=== PATIENT | male | born 1960 | race Caucasian/White ===

== ENCOUNTER 2024-05-14 05:10 | Observation (INO) ==
--- NOTE | 2024-04-07 11:43 | PAT Medication Instructions ---
Medication Instructions Date of Service April 07, 2024 Home Medications glucosamine sulf dipot chlr,msm,chond 550 mg-C 30 mg-jovani 1 mg capsule (Glucosamine Chondroitin) 1 cap PO QAM multivitamin 1 tab PO QAM naproxen sodium 220 mg tablet (Aleve) 220 mg PO BID omega 8-uwf-hgd-fish oil 100 mg-160 mg-1,000 mg capsule (Fish Oil) 1 cap PO QAM MEDICATION INSTRUCTIONS: ASK your surgeon for instructions naproxen sodium 220 mg tablet (Aleve) 220 mg PO BID STOP taking 2 weeks before surgery omega 8-wqs-mze-fish oil 100 mg-160 mg-1,000 mg capsule (Fish Oil) 1 cap PO QAM glucosamine sulf dipot chlr,msm,chond 550 mg-C 30 mg-jovani 1 mg capsule (Glucosamine Chondroitin) 1 cap PO QAM DO NOT take the morning of surgery multivitamin 1 tab PO QAM Other Notes Remember: NOTHING TO EAT OR DRINK AFTER MIDNIGHT If you have any questions please call us at [phone] or [phone] or [phone] or [phone]
--- NOTE | 2024-04-15 11:46 | Anesthesiology Consultation ---
Date of Service April 15, 2024 Assessment & Plan (1) Encounter for pre-operative examination: - Infectious disease screening: Per assessment on 04/15/24: No known recent infectious disease contacts or current infectious disease symptoms. - Outpatient joint pathway: Per surgeon paperwork/patient, plan for outpatient joint program. Patient seen at [facility] 04/15/24. Patient is an acceptable candidate to proceed as planned outpatient joint pathway pending perioperative course. Surgeon's office arranging post-op home management. - Preop testing: Borderline elevated coags on preop labs (PT 12.4, INR 1.2). At anesthesiologist discretion DOS if updated labs needed from their perspective. - Patient acceptable risk for surgery pending surgeon-ordered PCP preop evaluation (Dr. Reyes Gann, appt 04/27). Chart Review Chart Review: Patient seen in Pre Admission Testing Teaching & Discussion Pre-Anesthesia Teaching/Discussion Notes: Instructed NPO after midnight before surgery,except medications with 15 cc of water. Medication instructions provided according to the [facility] guidelines. History Surgery Operation Date: 05/14/24 10:25 Proposed Procedures p OP: Left Total Hip Arthroplasty Anterior Approach - Emeka Mcgee MD Height/Weight Height: 5 ft 10 in Weight: 77 kg Allergies Allergy/AdvReac Type Severity Reaction Status Date / Time No Known Allergies Allergy Verified 04/01/24 07:31 Medications Home Medications Medication Instructions Recorded Confirmed Last Taken glucosamine sulf dipot 1 cap PO QAM 04/01/24 04/01/24 Unknown chlr,msm,chond 550 mg-C 30 mg-jovani 1 mg capsule (Glucosamine Chondroitin) multivitamin 1 tab PO QAM 04/01/24 04/01/24 Unknown naproxen sodium 220 mg tablet 220 mg PO BID 04/01/24 04/01/24 Unknown (Aleve) omega 8-rpq-xtr-fish oil 100 1 cap PO QAM 04/01/24 04/01/24 Unknown mg-160 mg-1,000 mg capsule (Fish Oil) Past Medical History Medical History History of COVID-19 (2019) Symptoms resolved Osteoarthritis Exercise / Class Metabolic Activity II 4-5 Yardwork/Stairs/Walk up hill Past Family History Family History Other No family history of adverse response to anesthesia Past Surgical History Surgical History Hx of cholecystectomy Hx of colonoscopy Past Anesthesia History No Hx of Anesthesia Complications and No Family Hx of Anesthesia Complications History of PONV No Hx of PONV and Hx of Motion Sickness (Occasional) Social History Smoking Status: Never smoker Do You Dip or Chew Tobacco: No Hx Alcohol Use: Yes Alcohol type: beer alcohol intake frequency: a few times a week Hx Substance Use: No substance use type: does not use Review of Systems Patient denies chest pain, shortness of breath, dyspnea on exertion, fever, chills, cough, wheezing. Physical Exam Vital Signs BP 130/78 P 57 TEMP 97.5 SP02 99%RA RESP 16 Physical Full cervical extension range of motion. Full TMJ range of motion. TMD 3 finger breaths Mallampati Score II Dentition: intact Lungs: clear throughout to auscultation Cardiac: regular rate and rhythm, no murmurs noted Spine: normal Carotid arteries: negative bruit Extremities: no LE edema Lab Results Anesthesia Preop Results Results Anesthesia Widget: WBC 7.08 K/ul (4.8-10.8) 04/15/24 Hgb 15.8 g/dl (14.0-18.0) 04/15/24 Hct 46.0 % (42.0-52.0) 04/15/24 Plt 156 K/uL (130-400) 04/15/24 Na 138 mmol/L (136-145) 04/15/24 K 4.3 mmol/L (3.5-5.1) 04/15/24 Cl 104 mmol/L (98-107) 04/15/24 CO2 26 mmol/L (21-32) 04/15/24 BUN 18 mg/dl (6-23) 04/15/24 Creat 0.99 mg/dl (0.6-1.4) 04/15/24 Glucose Level 94 mg/dl (70-99(Fasting)) 04/15/24 PT 12.4 Seconds (9.0-12.0) H 04/15/24 PTT 26 Seconds (21-31) 04/15/24 INR 1.2 (0.9-1.1) H 04/15/24 Urine Color Yellow 04/15/24 Urine Appearance Clear (Clear) 04/15/24 Urine pH 6.5 (4.5-7.5) 04/15/24 Urine Specific [place] 1.015 (1.000-1.030) 04/15/24 Urine Protein Negative (Negative) 04/15/24 Urine Glucose (UA) Negative (Negative) 04/15/24 Urine Ketones Negative (Negative) 04/15/24 Urine Blood Negative (Negative) 04/15/24 Urine Nitrite Negative (Negative) 04/15/24 Urine Bilirubin Negative (Negative) 04/15/24 Urine Urobilinogen Negative (Negative) 04/15/24 Urine Leukocyte Esterase Negative (Negative) 04/15/24 Blood Type O Negative 04/15/24 Antibody Screen NEGATIVE 04/15/24 Testing Electrocardiogram Date: 04/15/24 SB at 52bpm. "Otherwise normal ECG." Chest X-Ray Date: 04/15/24 FINDINGS: No lines and tubes are seen. Calcified aortic knob is seen. The lungs are clear. No evidence of pleural effusion or pneumothorax. IMPRESSION: No acute chest disease.
--- NOTE | 2024-05-07 10:56 | History & Physical Report ---
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 He now has had greater than 1 year history of left hip and groin pain. Patient initially did well with intra-articular injections but has now failed injections with the last injection only giving about 1 weeks relief. This injection was given in January. The patient's pain is associated with decreased range of motion he cannot tie his shoe and sock he has activities of daily living pain and pain with again all activities of daily living. He has radiographic evidence of end-stage arthritis of the hip cetabular dysplasia and will be admitted for elective hip replacement surgery Allergies Allergy/AdvReac Type Severity Reaction Status Date / Time No Known Allergies Allergy Verified 04/01/24 07:31 Home Medications Medication Instructions Recorded Confirmed Type glucosamine sulf dipot 1 cap PO QAM 04/01/24 04/01/24 History chlr,msm,chond 550 mg-C 30 mg-jovani 1 mg capsule (Glucosamine Chondroitin) multivitamin 1 tab PO QAM 04/01/24 04/01/24 History naproxen sodium 220 mg tablet 220 mg PO BID 04/01/24 04/01/24 History (Aleve) omega 1-nnj-noc-fish oil 100 1 cap PO QAM 04/01/24 04/01/24 History mg-160 mg-1,000 mg capsule (Fish Oil) Past Med/Surg History Problem List (Updated 05/07/24 @ 10:56 by Emeka Mcgee MD) Degenerative joint disease of left hip Encounter for pre-operative examination Medical History Osteoarthritis History of COVID-19 (2019) Symptoms resolved Surgical History Hx of colonoscopy Hx of cholecystectomy Family History Other No family history of adverse response to anesthesia Social History Smoking Status: Never smoker Second Hand Exposure: No; Do You Dip or Chew Tobacco: No; Tobacco Cessation Education Requested by Patient: No Hx Alcohol Use: Yes Alcohol type: beer Hx Substance Use: No Preferred Language: German Communication Ability: Effective Special Education Superintendent Required: No Beliefs That Will Affect Care: None Current Living Situation: Spouse Other Information That Helps Us Care for You: No Feels Safe at Home: Yes Safety Concerns: Feels Safe At This Time Assistive Devices: Glasses Review of Systems Review of Systems: Hip and groin pain Physical Exam Physical Exam: Weight 77 kg BMI 24 General: Well-nourished well-developed male who appears to be his stated age. HEENT: NCAT, EOMI, PERRLA Neck: Supple without bruits Heart: Regular rate and rhythm no murmurs Lungs: Breath sounds clear and present in all mcclain Abdomen: Soft nontender bowel sounds positive Extremities: Left hip shows equal leg lengths of the right passive range of motion is 5 to 90 degrees flexion -15 degrees internal rotation which reproduces groin pain. Neurological and vascular: Intact Results & Data Results & Data Vital Signs (Past 12 Hours) Blood pressure 130/72 Pulse 69
[2024-05-14] MEDS: LR 60ML/HR IV SCH (05:47)
[2024-05-14] MEDS: FAMOTIDINE 20 MG TAB PO SCH (05:59)
[2024-05-14] MEDS: ACETAMINOPHEN 500 MG TAB PO SCH (05:59)
[2024-05-14] MEDS: traMADol HCL 50 MG TABLET PO SCH (05:59)
[2024-05-14] MEDS: METOCLOPRAMIDE HCL 10 MG TABLET PO SCH (05:59)
[2024-05-14] MEDS: CeleBREX 200 MG CAP PO SCH (05:59)
[2024-05-14] MEDS: GABAPENTIN 300 MG CAP PO SCH (05:59)
[2024-05-14] MEDS: dexAMETHasone**PF** 10 MG/ML VIAL IV SCH (06:12)
[2024-05-14] MEDS ORDERED: ROPIVACAINE 0.5% 5 MG/ML 30 ML VIAL ONE (06:12)
[2024-05-14] MEDS ORDERED: ePHEDrine sulfate 50 MG/ML AMP IV PRN (06:38)
[2024-05-14] MEDS ORDERED: KETOROLAC 30 MG/ML VIAL IV PRN (06:38)
[2024-05-14] MEDS ORDERED: fentaNYL citrate PF 100 MCG/2 ML VIAL IV PRN (06:38)
[2024-05-14] MEDS ORDERED: ATROPINE SULFATE 0.1 MG/ML 10ML SYR IV PRN (06:38)
[2024-05-14] MEDS ORDERED: ONDANSETRON INJ 2 MG/ML 2 ML VIAL IV PRN (06:38)
--- NOTE | 2024-05-14 06:38 | History & Physical Bridge Note ---
Date of Service May 14, 2024 History & Physical Bridge Note I have examined the patient, reviewed the History & Physical and in the interval since the performance of the History & Physical I have noted the following changes of clinical significance: no changes noted
[2024-05-14] MEDS: TRANEXAMIC ACID 1,000 MG **IV Pre-op IV SCH (06:46)
[2024-05-14] MEDS ORDERED: MIDAZOLAM HCL 1 MG/ML 2ML VIAL ONE (06:46)
[2024-05-14] MEDS ORDERED: PROPOFOL IV EMULSION 10 MG/ML 20 ML VIAL IV ONE ×3 (06:58→07:56)
[2024-05-14] MEDS ORDERED: LIDOCAINE 2% 2 ML VIAL/AMP(20MG/ML) INFIL ONE (06:58)
[2024-05-14] MEDS: ceFAZolin 2000MG 2,000 MG/15 ML SYR IV SCH (07:09)
[2024-05-14] MEDS ORDERED: fentaNYL citrate PF 100 MCG/2 ML VIAL ONE (07:28)
[2024-05-14] MEDS ORDERED: PHENYLEPHRINE 100MCG/ML 10ML SYR IV ONE (07:42)
[2024-05-14] MEDS ORDERED: ONDANSETRON INJ 2 MG/ML 2 ML VIAL ONE (07:42)
[2024-05-14] MEDS ORDERED: ePHEDrine sulfate 50 MG/5 ML SYR ONE (07:42)
[2024-05-14] MEDS: ORTHO JOINT ANESTHETIC ONE (07:46)
[2024-05-14] MEDS: TRANEXAMIC ACID 1,000 MG **IV Intra-op IV SCH (08:16)
[2024-05-14] MEDS ORDERED: KETOROLAC 30 MG/ML VIAL ONE (08:18)
[2024-05-14] MEDS: ROPIV 0.5% 246mg, Ketorolac 30mg, EPINEPHrine 0.5mg in NSS INFIL SCH (08:18)
--- NOTE | 2024-05-14 08:35 | Post Operative Brief Note ---
Immediate Post Op Note Date of Surgery May 14, 2024 Pre & Post Diagnosis Operation Date: 05/14/24 07:15 <No data on this case meets the specified criteria> I identified the patient and participated in the time-out.: Yes Procedure Operation Date: 05/14/24 07:15 <No data on this case meets the specified criteria> Surgeon Emeka Mcgee MD Extrusion Technician None Estimated Blood Loss 100 Findings Consistent with Post-Op Diagnosis
--- NOTE | 2024-05-14 08:41 | Operative Report ---
Post Operative Report Pre & Post Diagnosis Operation Date: 05/14/24 07:15 <No data on this case meets the specified criteria> I identified the patient and participated in the time-out.: Yes Procedure Operation Date: 05/14/24 07:15 <No data on this case meets the specified criteria> Surgeon Emeka Mcgee MD Child Support Specialist None Estimated Blood Loss 100 Findings Consistent with Post-Op Diagnosis moderate to severe acetabular dysplasia and moderate to severe degenerative changes with chronically inflamed synovial lining Specimens femoral head and bone and cartilage fragments Complications none Indications components used: [employer] a fit system: Acetabulum size 54 with 25 mm dome screw and 36 mm highly cross-linked polyethylene liner. Femur size 7 high offset with 0 neck length 36 mm Oxinium head Description of Procedure following satisfactory spinal anesthesia the patient was supine on the operating room table. The left leg was placed in the traction device in the right leg in the well-leg cadena. Positioning was confirmed with fluoroscopy. The leg was prepared with ChloraPrep and draped sterilely. A surgical timeout was performed. An anterior approach was performed in the interval between the sartorius and tensor muscles. The circumflex femoral vessels were identified and coagulated. An anterior capsulotomy was performed exposing the arthritic femoral neck and head. Patient did have fairly well-developed muscles which made the approach somewhat tight. Fluoroscopy was used to confirm femoral neck resection level which was completed and the arthritic femoral head was removed. The acetabular self-retaining retractor was placed. Acetabular preparation was completed with excision of excess the redundant labral and capsular tissue. The acetabulum was reamed under direct vision. A 54 shell was impacted into a healthy bleeding bed into a position of 35 to 40 degrees of abduction and 25 degrees of anteversion confirmed with fluoroscopy. A dome screw was placed followed by the Oreo liner. Local anesthetic was placed and the wound was irrigated. The femur was placed into a position of external rotation extension and adduction. The femoral canal was identified and was prepared up to a size 7. A trial reduction with a high offset neck and a 0 neck length head trial was performed. Fluoroscopy showed good fit and fill of the proximal canal. Very good orientation of the components, and latter-day of leg length and offset at the level of the lesser trochanter. The hip was dislocated. The trial component removed. Local anesthetic was placed. After irrigation the final implant stem head complex of the same size was placed the hip was irrigated and reduced. Fluoroscopy showed similar findings. There was very little bleeding. The tensor fascia was closed with running suture of 0 strata fix as well as the deeper subcutaneous fat layer. The most superficial layer was closed with a running subcuticular stitch of 3 oh strata fix. Dermabond Prineo and a negative pressure wound dressing were applied. The patient was returned to his bed having tolerated the procedure in good condition. I attest to the content of the Intraoperative Record and any orders documented therein. Any exceptions are noted below.
--- NOTE | 2024-05-14 08:50 | Fluoroscopy Report ---
FL hip LT 2-3V CLINICAL HISTORY: LEFT ANTERIOR HIP COMPARISON STUDY: None. FLUOROSCOPY TIME: 14 seconds. Ka, r: 1.6587 mGy FLUOROSCOPIC IMAGES: 1 FINDINGS: Fluoroscopy was provided during anterior total left hip arthroplasty. Hardware is intact. T here are no fractures. No unexpected radiopaque foreign bodies are present. IMPRESSION: Fluoroscopy provided during anterior total left hip arthroplasty. ACT 112: Negative or not required by law. Electronically signed by: Skinny Bullock M.D. 05/14/2024 8:48 AM
--- NOTE | 2024-05-14 09:19 | Anesthesiology Progress Note ---
Date of Service May 14, 2024 Anesthesia Post Procedure Vital Signs Vital Signs: Temp Pulse Pulse Resp BP Pulse Ox O2 Del Method 05/14/24 09:05 93 H 14 125/78 99 Oxymask 05/14/24 08:55 100 H 13 115/69 100 Oxymask 05/14/24 08:45 66 7 L 128/68 99 Oxymask 05/14/24 08:38 36.1 C L 63 18 113/57 L 99 Oxymask 05/14/24 05:42 36.6 C 64 20 150/85 H 100 Room Air O2 Flow Rate 05/14/24 09:05 3 05/14/24 08:55 5 05/14/24 08:45 10 05/14/24 08:38 10 05/14/24 05:42 Pain Intensity Left Hip: Pain Intensity: 0 Transfer of Care Handoff Completed per policy Notes Mental Status: alert / awake / arousable Patient Amnestic to Procedure: Yes Nausea / Vomiting: adequately controlled Pain: adequately controlled Airway Patency, RR, SpO2: stable & adequate BP & HR: stable & adequate Hydration State: stable & adequate Neuraxial Anesthesia: was administered and sensory block is resolving Anesthetic Complications: no major complications apparent
[2024-05-14] MEDS ORDERED: ceFAZolin 2000MG 2,000 MG/15 ML SYR IV ONE (11:00)
[2024-05-14] MEDS: traMADol HCL 50 MG TABLET PO PRN (11:05)
[2024-05-14] MEDS: ACETAMINOPHEN 500 MG TAB PO PRN (13:55)
[2024-05-14] MEDS: ceFAZolin 2000MG 2,000 MG/15 ML SYR IV ONE (14:25)
[2024-05-14] MEDS: LACTATED RINGER'S 1,000 ML IV SCH (16:54)
[2024-05-14] MEDS: ASPIRIN 81 MG ECTAB PO SCH (22:17)
[2024-05-14 22:37] VITALS: O2SAT 98
[2024-05-15 04:49] VITALS: RESP 18; TEMP 98.1
--- NOTE | 2024-05-15 07:04 | Orthopedic Progress Note ---
Date of Service May 15, 2024 Assessment & Plan (1) Degenerative joint disease of left hip: Plan: patient seems much improved this morning. We will get him up with PT and reassess some but provided he is stable he will be discharged to home and will be followed there by [facility] follow-up in 2 weeks Admission and Anticipated Discharge Date Admission Date: May 14, 2024 Subjective Postoperative day #1 left total hip replacement Patient had postural hip hypotension on the day of surgery. He was scheduled as a same-day surgery but because of continued hypotension it was decided that he would stay overnight. This morning he offers no complaints he is awake alert and oriented x 3. He has been up his blood pressure is doing a good bit better. Physical Exam Physical Exam: Patient is examined at the bedside again is alert and oriented x 3. His hip is located his thigh and calf are soft and nontender he is neurologically and vascularly intact some pain with active hip flexion Results & Data Vital Signs (Past 12 Hours) Vital Signs Temp Pulse Resp BP Pulse Ox O2 Del Method 05/15/24 04:48 36.7 C 65 18 114/72 98 Room Air 05/14/24 22:36 36.5 C 77 16 125/73 98 Room Air 05/14/24 19:58 36.8 C 87 18 118/76 97 Room Air
[2024-05-15 08:03] VITALS: BP 107/83; PULSE 72
--- NOTE | 2024-05-20 20:30 | Discharge Summary ---
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 He now has had greater than 1 year history of left hip and groin pain. Patient initially did well with intra-articular injections but has now failed injections with the last injection only giving about 1 weeks relief. This injection was given in January. The patient's pain is associated with decreased range of motion he cannot tie his shoe and sock he has activities of daily living pain and pain with again all activities of daily living. He has radiographic evidence of end-stage arthritis of the hip c etabular dysplasia and will be admitted for elective hip replacement surgery Admission Exam Per Admitting Provider Physical Exam: Weight 77 kg BMI 24 General: Well-nourished well-developed male who appears to be his stated age. HEENT: NCAT, EOMI, PERRLA Neck: Supple without bruits Heart: Regular rate and rhythm no murmurs Lungs: Breath sounds clear and present in all mcclain Abdomen: Soft nontender bowel sounds positive Extremities: Left hip shows equal leg lengths of the right passive range of motion is 5 to 90 degrees flexion -15 degrees internal rotation which reproduces groin pain. Neurological and vascular: Intact Principal Diagnosis Left Hip Osteoarthritis Discharge Data Allergies Allergy/AdvReac Type Severity Reaction Status Date / Time No Known Allergies Allergy Verified 05/14/24 05:34 Procedures Performed Operation Date: 05/14/24 07:15 Actual Procedures p Left Total Hip Replacement - Anterior Approach(Left) - Emeka Mcgee MD Ordered Studies 05/14/24 07:15 FL hip LT 2-3V Routine Hospital Course (1) Degenerative joint disease of left hip: Patient: MERCED CRESPO Admit Date: 05/14/24 MR#: [id number] Att Phy: Emeka Mcgee MD Acct ID: [id number] Edwige Phy: Reyes Gann M.D. Date: 1960 Fam Phy: Age: 63 Location: 3E Sex: M Room/Bed: E303-1 cc: ~ *NOTICE TO RECEIVING CONSTITUTION PARTY/AGENCY This information is strictly Confidential and protected under [place] law. [place] law prohibits you from making any further disclosure of this information unless further disclosure is expressly permitted by the written consent of the person to whom it pertains or is authorized by law. A general authorization for the release of medical or other information is not sufficient for this purpose. Hospital accepts no respo nsibility if the information is made available to any other person, INCLUDING THE PATIENT. Date of Service May 15, 2024 Assessment & Plan (1) Degenerative joint disease of left hip: Plan: patient seems much improved this morning. We will get him up with PT and reassess some but provided he is stable he will be discharged to home and will be followed there by [facility] on license of [facility] follow-up in 2 weeks Admission and Anticipated Discharge Date Admission Date: May 14, 2024 Subjective Postoperative day #1 left total hip replacement Patient had postural hip hypotension on the day of surgery. He was scheduled as a same-day surgery but because of continued hypotension it was decided that he would stay overnight. This morning he offers no complaints he is awake alert and oriented x 3. He has been up his blood pressure is doing a good bit better. Physical Exam Physical Exam: Patient is examined at the bedside again is alert and oriented x 3. His hip is located his thigh and calf are soft and nontender he is neurologically and vascularly intact some pain with active hip flexion Results & Data Vital Signs (Past 12 Hours) Vital Signs Temp Pulse Resp BP Pulse Ox O2 Del Method 05/15/24 04:48 36.7 C 65 18 114/72 98 Room Air 05/14/24 22:36 36.5 C 77 16 125/73 98 Room Air 05/14/24 19:58 36.8 C 87 18 118/76 97 Room Air Signed By: <Electronically signed by Emeka Mcgee MD> 05/15/24 0704 Created: 05/15/24 0702 Total Time Total Time Spent Total Time Spent (In Minutes): 5 Discharge Plan Discharge Items Patient Disposition: Home - Home Health Services Reason For Visit: Left Hip Osteoarthritis Discharge Diagnosis: Left hip osteoarthritis Activity: Per Instructions section Non-emergency contact: Surgeon Call non-emergency contact if: you have any medication questions, your pain is worsening, your temperature is above 101.5, your wound has increased redness and your wound has increased drainage Follow-up/Referrals: [facility] [Outside] (as per surgeon's office) Emeka Mcgee MD [Surgeon] - ( follow-up with Dr. Mcgee or his PA in 2 weeks from the date of your surgery for your first postoperative visit.) PCP,NO [Physician] - Diet: Regular Addtl Attending Provider Instructions: DR. BAXTER POST-OP INSTRUCTIONS FOR TOTAL HIP ARTHROPLASTY PLEASE REVIEW PRIOR TO SURGERY Day of Surgery You will be admitted and meet the nursing and anesthesia team. Dr. Mcgee will see you and sign your operative side. Anesthesia will place your spinal anesthetic in the pre-op area Your surgery will be performed and last approximately 1 2 hours. Upon waking, you will notice a dressing and ice pack on your hip. You will remain in the recovery room for 1 2 hours, then be transferred to your room in the ambulatory surgical area if you are to go home the same day as your surgery or transferred to the orthopedic floor if you will be staying overnight. Most of Dr. Baxter total hip patients go home the same day as surgery. This depends on how well you feel. Patients generally seem to feel better in their own home environment, and the risk of exposure to bad bugs is much lower. (Your post-operative medications will be sent to your pharmacy approximately 1-2 days prior to your procedure) Day 1 post-op (if you have an overnight stay in the hospital) You will have bloodwork drawn in the morning Physical therapy will evaluate you in the morning. You will start getting out of bed and ambulating with a walker. They will instruct you on hip motion exercises. Use your cold packs as instructed. This will decrease swelling and minimize pain. support services tech will discuss your discharge plan. Discharge will generally be around 11am Day 1 post-op (all patients) You will be taking Aspirin 81mg twice for 4 weeks to decrease the risk of a blood clot. You will most likely have a drain and a FANG (superficial wound VAC) dressing post-operatively. This will keep your incision dry as well as aid in early healing. The batteries will wear out and the VAC will lose suction around day 6 - 7 post-op. At that time, you may turn off the device and disconnect from the dressing. You must keep the dressing on until your first post- operative visit with Dr. Mcgee. If the dressing appears to be saturated, please call our office. Day 2 14 post-op You will have a home nurse visit to assess your status and remove your drain on post-op day 2. You are permitted to shower immediately with the VAC. Do not soak the dressing let the shower flow on your opposite side, and pat dry the plastic. Once the dressing has been removed, you may shower normally with the incision exposed. Do not rub the area simply let soapy water run over the incision and lightly pat dry. Therapy will begin on post-op day 3. Your therapy prescription will be sent to your home therapy company/therapist You should continue doing your home exercises Week 2 post-op and forward You will have your first post-op appointment 2 weeks after surgery which should have been scheduled for you by our office. This appointment will be to check your incision, progression of therapy and pain control. Xrays will be taken to evaluate the prosthesis. You will continue to use a cane or a walker until you feel safe enough to stop using it. You will have a 6-week post-op appointment which should have been scheduled for you by our office. Xrays will be taken to evaluate the prosthesis. You will continue to advance range of motion. By 3 to 4 months after surgery, you should have almost full range of motion and may resume most activities. You may have some pain around the hip with certain activities this is completely normal. You will be scheduled for a 1 year post-op appointment to assess your outcome (sooner if Dr. Mcgee feels necessary). Pain: The immediate post-op period after hip replacement surgery can be painful. However, the degree and frequency of the pain is generally much less than knee replacement surgery. You should take your pain medicine as you need it, especially prior to physical therapy and bedtime. Your pain will decrease and you may transition to a milder pain medicine (with less side effects, such as Tylenol) as soon as possible. It is common to have pain at night that int erferes with sleep this can last for several months. Pain medicines can cause nausea and constipation do not take more than you need. You may be prescribed one or more of the following MEDICATIONS : 1. Celebrex this controls inflammation and makes pain medications mor effective it will be taken once or twice a day 2. Tylenol a pain medicine that can help to decrease your pain you should take 1000mg three times a day 3. Tramadol a pain medicine that can be taken every 4-6 hours (instead of Oxycodone) as needed to control your pain 4. Oxycodone a VERY strong pain medicine that can be taken every 4-6 hours (instead of Tramadol) as needed to control your pain. This medication has the most side effects and is usually not necessary for hip replacements. 5. Aspirin 81mg blood thinning medication to help minimize the risk of development of blood clots unfortunate side effects of pain medicine include nausea and constipation if you experience these issues or have any questions about your post-op medications, call [facility] at for assistance/advice on how to manage these issues Hip replacement surgery does not require a lot of aggressive physical therapy. Learning to walk safely and obeying hip precautions are most important. While in the hospital, you will be shown a series of home exercises you should perform these exercises 3 4 times daily in addition to physical therapy. After the completion of home therapy (approx.. 2 weeks), most therapy exercises can be done on your own. You should walk several times a day. Try not to be standing for more than an hour at a time during the first 4 weeks post-op as you may experience more swelling. If you develop swelling, you need to elevate your legs/feet at or above the level of your heart. You may progress from a walker to a cane to walking independently as you feel comfortable. Unless it is an emergency, YOUR ARE NOT PERMITTED TO HAVE ANY DENTAL CLEANING/WORK UNTIL 3 MONTHS AFTER SURGERY. You will be required to take an antibiotic prior to any dental cleaning or dental work in order to prevent your joint prothesis from getting infected. This medication is a one time per visit dose to be taken one hour prior to appointment. You may call our office for this prescription or your dentist may be willing to prescribe the medication. Remember to contact [facility] at if you develop any signs of infection which include increased swelling, pain, redness, drainage from incision, warmth, fever, chills or severe pain unrelieved by pain medication. If you develop any chest pain or shortness of breath, you should proceed immediately to the nearest Emergency Room. It is normal to run a low-grade fever after surgery. If your fever is consistent at 101.0 or higher, you will need to contact the office. Pending Studies at Discharge: No Stand-Alone Forms: Anesthesia/Sedation, Adult, Pending Sale To [facility] Medications and DC Order Prescriptions: Continued multivitamin Tablet 1 tab PO QAM Fish Oil 100-160-1,000 mg Capsule 1 cap PO QAM Glucosamine Chondroitin 550-30-1 mg Capsule 1 cap PO QAM acetaminophen [Tylenol Extra Strength] 500 mg Tablet 1,000 mg PO TID cholecalciferol (vitamin D3) [Vitamin D3] 125 mcg (5,000 unit) Tablet 125 mcg PO DAILY Discontinued naproxen sodium [Aleve] 220 mg Tablet 220 mg PO BID Krames/Other Patient Handouts: DVT Post Op Prevention, After Hip Replacement: Home Safety Admission Data Admit Date/Time: 05/14/24 15:16 Attending Provider: Emeka Mcgee Admit Provider: Emeka Mcgee Primary Care Provider: Reyes Gann Other Providers: [facility],Home Health Other Interventions: Discharge Summary Assessment (RN) Last Done: 05/15/24 10:23
== END 2024-05-15 11:15 | disposition home health service (06) ==
LOC: 3E 05:10 → ASU 05:10